=== PATIENT | male | born 1955 | race Caucasian/White ===

== ENCOUNTER 2024-12-16 16:59 | Inpatient (IN) ==
[2024-12-16 17:43] LABS: Hematocrit (blood only) 46.3 % (42.0-52.0); Hemoglobin 15.8 g/dl (14.0-18.0); Immature Granulocytes # (auto) 0.06 K/uL (0.01-0.20); Immature Granulocytes % (auto) 0.4 %; Mean Corpuscular Hemoglobin 28.8 pg (25.0-34.0); Mean Corpuscular Volume 84.3 fL (80.0-100.0); Platelet Count 279 K/uL (130-400); RDW Standard Deviation 37.8 fL (36.4-46.3); Red Blood Count 5.49 M/uL (4.70-6.10); White Blood Count 14.14 K/ul (4.8-10.8)
--- NOTE | 2024-12-16 17:55 | Emergency Department Note ---
Impression & Plan Pacemaker generator end of life, History of tetralogy of Fallot, Chronic indwelling Branch catheter, Hypomagnesemia ED Provider Note ED Provider Note NAME: STEF FLORES AGE:69 SEX: Male : 1955 ARRIVES VIA: private vehicle INFORMANT: Patient ED PROVIDER(s): Rosa Escalante DO CHIEF COMPLAINT: referred by cardiology HPI: This is a 69-year-old male who presents to the emergency department after being referred here by cardiology due to a concerning interrogation of his pacemaker as an outpatient as part of preop clearance for urologic procedure. Patient with a prior history of tetralogy of Fallot repair back in 1962. He has had a pacemaker since the age of 27 and states he is on his fourth one. He states he was required to have cardiology clearance before anesthesia would agree to the operative intervention for his ongoing urologic issues. He has a chronic indwelling Branch catheter and has had for 1 year. Patient denies any recent palpitations, chest pain, dizziness, headaches, vomiting, sweating, or leg swelling. PAST MEDICAL HISTORY:See Below PAST SURGICAL HISTORY:See Below FAMILY HISTORY:See Below SOCIAL HISTORY:See Below HOME MEDICATIONS:See Below ALLERGIES:See Below VITALS:See Below PHYSICAL EXAMINATION: GENERAL: alert, well appearing, well nourished, no distress, non-toxic EYE EXAM: normal conjunctiva, PERRL and EOM's grossly intact OROPHARYNX: no exudate, no erythema, lips, buccal mucosa, and tongue normal and mucous membranes are dry NECK: supple, no nuchal rigidity, no adenopathy, non-tender LUNGS: Clear to auscultation. Normal chest wall mechanics, no w/r/r HEART: no murmurs, S1 normal and S2 normal ABDOMEN: abdomen soft, non-tender, normo-active bowel sounds, no masses, no rebound or guarding. SKIN: no rashes, petechiae, orbruising UPPER EXTREMITIES: upper extremities are grossly normal. FROM, nml pulses b/l. LOWER EXTREMITIES: No pitting edema. FROM, nml pulses b/l. NEURO EXAM: Normal sensorium, cranial nerves II-XII grossly intact, normal speech, no facial droop,nogross weakness of arms, no gross weakness of legs. Gross sensation intact. No ataxia. Vital Signs: reviewed and remarkable Differential Diagnosis: Palpitations, dysrhythmia, pacemaker malfunction, ACS, pneumonia, dissection, pericarditis, myocarditis, pericardial effusion, medication ADR, as well as others were considered MEDICAL DECISION MAKING: This is a 69-year-old male referred to the emergency department by cardiology, Dr. Low, who I spoke with prior to his arrival. Concern by cardiology for end-of-life of his pacemaker and a chronically pacemaker patient. Patient denies any overt cardiac symptoms. He was afebrile and hemodynamically stable on arrival. He was aware of the findings by cardiology and his referral here for admission and generator change tomorrow. Labs drawn and sent, IV established, EKG and chest x-ray performed at bedside and interpreted by me and the patient was monitored on telemetry. He was noted to be mildly hypomagnesemic, IV magnesium repletion was started. Patient started on gentle IV fluid hydration. Case discussed with the hospitalist team for additional evaluation and management. They did speak with cardiology also. Consultation(s): 1839: Discussed with Dr. Cline, [facility] hospitalist team, for additional evaluation and mgmt. ER Treatment Provided: See below Diagnostics Interpreted By Me: -ECG: Paced at 65, rightward axis, prolonged intervals, no acute ST/T wave changes -Cardiac Monitoring: An order was placed for continuous cardiac monitoring. The monitor shows a rate of 66 with paced rhythm. -Laboratory studies: As stated above and show below. -Imaging studies: X-ray Chest: A single view study of the chest was reviewed and was negative for focal infiltrate, effusion, pulmonary edema, or wide mediastinum. Abnormal cardiac silhouette. Pacemaker noted. Triage Nursing Note Reviewed Prior/Outside Records Reviewed Past Med/Surg History Problem List (Updated 12/17/24 @ 00:11 by Rosa Escalante DO) Hypomagnesemia (Acute) Chronic indwelling Branch catheter (Acute) History of tetralogy of Fallot (Acute) Pacemaker generator end of life (Acute) Social History Smoking Status: Never smoker Tobacco Type: Smokeless Tobacco (Dip or Chew) Second Hand Exposure: No; Do You Dip or Chew Tobacco: No; Hx Alcohol Use: No Hx Substance Use: No Preferred Language: Greenlandic Communication Ability: Effective Tromper Required: No Beliefs That Will Affect Care: None Current Living Situation: Alone Feels Safe at Home: Yes Assistive Devices: None Allergies Allergies Allergy/AdvReac Type Severity Reaction Status Date / Time aspirin Allergy Unknown Verified 12/16/24 18:27 Home Meds Home Medications Medication Instructions Recorded Confirmed allopurinol 100 mg tablet 50 mg PO QAM 12/16/24 12/16/24 famotidine 20 mg tablet 20 mg PO QAM 12/16/24 12/16/24 finasteride 5 mg tablet 5 mg PO QAM 12/16/24 12/16/24 furosemide 40 mg tablet 40 mg PO BID 12/16/24 12/16/24 magnesium oxide 400 mg (241.3 mg 400 mg PO QAM 12/16/24 12/16/24 magnesium) tablet metformin 1,000 mg tablet 1,000 mg PO BIDWMEAL 12/16/24 12/16/24 polyethylene glycol 3350 17 17 g PO QAM 12/16/24 12/16/24 gram/dose oral powder (ClearLax) pravastatin 40 mg tablet 0 mg PO HS 12/16/24 12/16/24 sotalol 80 mg tablet 80 mg PO BID 12/16/24 12/16/24 spironolactone 25 mg tablet 25 mg PO QAM 12/16/24 12/16/24 tamsulosin 0.4 mg capsule 0.4 mg PO QAM 12/16/24 12/16/24 vitamin B complex 1 tab PO QAM 12/16/24 12/16/24 Results & Data (ED) Vital Signs Vital Signs - 24 hr 12/16/24 17:00 12/16/24 17:30 12/16/24 18:15 Temperature 36.6 C Temperature Source Temporal Artery Scan Pulse Rate 65 65 Pulse Rate [Apical] 65 Pulse Rate from SpO2 Sensor 65 Pulse Rhythm [Apical] Respiratory Rate 18 18 22 Respiratory Effort / Characteristics Non-Labored Spontaneous Respiratory Depth Normal Respiratory Pattern Regular Blood Pressure 115/69 Blood Pressure [Right Arm] 97/65 L Blood Pressure Mean 84 Blood Pressure Mean [Right Arm] 75 Pulse Oximetry 95 94 94 Oxygen Delivery Method Room Air Sepsis Recent Fever Within 48 Hours No Sepsis New/Unexplained Change in Mental Status N/A Sepsis Action Taken by Nursing No Action Required 12/16/24 18:15 12/16/24 18:15 12/16/24 18:15 Temperature Temperature Source Pulse Rate Pulse Rate [Apical] Pulse Rate from SpO2 Sensor Pulse Rhythm [Apical] Respiratory Rate Respiratory Effort / Characteristics Respiratory Depth Respiratory Pattern Blood Pressure 114/70 114/70 114/70 Blood Pressure [Right Arm] Blood Pressure Mean 85 85 85 Blood Pressure Mean [Right Arm] Pulse Oximetry Oxygen Delivery Method Sepsis Recent Fever Within 48 Hours Sepsis New/Unexplained Change in Mental Status Sepsis Action Taken by Nursing 12/16/24 18:20 12/16/24 18:27 12/16/24 18:29 Temperature Temperature Source Pulse Rate 65 66 Pulse Rate [Apical] 65 Pulse Rate from SpO2 Sensor 64 Pulse Rhythm [Apical] Regular Respiratory Rate 23 18 Respiratory Effort / Characteristics Non-Labored Spontaneous Respiratory Depth Normal Respiratory Pattern Regular Blood Pressure Blood Pressure [Right Arm] 114/70 Blood Pressure Mean Blood Pressure Mean [Right Arm] 84 Pulse Oximetry 95 94 Oxygen Delivery Method Room Air Room Air Sepsis Recent Fever Within 48 Hours Sepsis New/Unexplained Change in Mental Status Sepsis Action Taken by Nursing 12/16/24 18:31 Temperature Temperature Source Pulse Rate Pulse Rate [Apical] Pulse Rate from SpO2 Sensor Pulse Rhythm [Apical] Respiratory Rate Respiratory Effort / Characteristics Respiratory Depth Respiratory Pattern Blood Pressure 114/64 Blood Pressure [Right Arm] Blood Pressure Mean 97 Blood Pressure Mean [Right Arm] Pulse Oximetry Oxygen Delivery Method Sepsis Recent Fever Within 48 Hours Sepsis New/Unexplained Change in Mental Status Sepsis Action Taken by Nursing Laboratory Data 12/16/24 17:23 12/16/24 17:23 Lab Results 12/16/24 Range/Units 17:23 WBC 14.14 H (4.8-10.8) K/ul RBC 5.49 (4.70-6.10) M/uL Hgb 15.8 (14.0-18.0) g/dl Hct 46.3 (42.0-52.0) % MCV 84.3 (80.0-100.0) fL MCH 28.8 (25.0-34.0) pg MCHC 34.1 (32.0-36.0) g/dL RDW Std Deviation 37.8 (36.4-46.3) fL RDW Coeff of Ar 12.5 (11.5-14.5) % Plt Count 279 (130-400) K/uL MPV 10.7 (9.4-12.4) fL Immature Gran % (Auto) 0.4 % Neut % (Auto) 69.6 % Lymph % (Auto) 19.7 % Churchill % (Auto) 9.8 % Eos % (Auto) 0.0 % Baso % (Auto) 0.5 % Neut # (Auto) 9.84 H (1.40-6.50) K/uL Lymph # (Auto) 2.79 (1.20-3.40) K/uL Churchill # (Auto) 1.38 H (0.11-0.59) K/uL Eos # (Auto) 0.00 (0.00-0.50) K/uL Baso # (Auto) 0.07 (0.00-0.20) K/uL Immature Gran # (Auto) 0.06 (0.01-0.20) K/uL PT 11.2 (9.0-12.0) Seconds INR 1.0 (0.9-1.1) Sodium 137 (136-145) mmol/L Potassium 3.9 (3.5-5.1) mmol/L Chloride 96 L (98-107) mmol/L Carbon Dioxide 29 (21-32) mmol/L Anion Gap 12 H (3-11) BUN 42 H (6-23) mg/dl Creatinine 1.12 (0.6-1.4) mg/dl Est Cr Clr Drug Dosing 62.9 ml/min eGFR 71.56 BUN/Creatinine Ratio 37.5 H (10-20) Glucose 138 H (70-99(Fasting)) mg/dl Calcium 10.1 (8.6-10.3) mg/dl Magnesium 1.5 L (1.7-2.4) mg/dl Total Bilirubin 0.5 (0.2-1.0) mg/dl AST 13 (13-39) U/L ALT 10 (7-52) U/L Alkaline Phosphatase 66 (34-104) U/L Total Protein 8.0 (6.0-8.3) gm/dl Albumin 4.4 (3.4-5.0) gm/dl Globulin 3.6 (2.5-4.0) gm/dl Albumin/Globulin Ratio 1.2 (0.9-2) Procalcitonin < 0.02 (0-0.5) ng/ml Administered Medications Furosemide (Furosemide 40 Mg Tab) 40 mg PO BID SEAMUS Stop: 01/15/25 20:59 Last Admin: 12/16/24 21:08 Dose: 40 mg Documented By: JANIYA Insulin Aspart (Insulin Aspart Per Unit Charge) 0 units SC Q6 SEAMUS Stop: 01/15/25 20:59 Last Admin: 12/16/24 23:17 Dose: Not Given Documented By: JANIYA Co-signed By: CHAYITO Admin: 12/16/24 21:09 Dose: Not Given Documented By: DM Co-signed By: SYLVESTER Sotalol HCl (Sotalol Hcl 80 Mg Tab) 80 mg PO BID SEAMUS Stop: 01/15/25 20:59 Last Admin: 12/16/24 21:08 Dose: 80 mg Documented By: DM Discontinued Medications Sodium Chloride (Nss) 1,000 mls @ 125 mls/hr IV .Q8H SEAMUS Stop: 12/19/24 17:59 Last Infusion: 12/16/24 19:20 Dose: Infused Documented By: Infusion: 12/16/24 19:19 Dose: 0 mls/hr Documented By: Admin: 12/16/24 18:20 Dose: 125 mls/hr Documented By: FREYA Magnesium Sulfate/Dextrose (Magnesium Sulfate / D5w) 1 gm in 100 mls @ 100 mls/hr IV NOW STA Stop: 12/16/24 19:05 Last Infusion: 12/16/24 19:32 Dose: Infused Documented By: Admin: 12/16/24 18:20 Dose: 100 mls/hr Documented By: FREYA Magnesium Sulfate/Dextrose (Magnesium Sulfate / D5w) 1 gm in 100 mls @ 50 mls/hr IV Q2H SEAMUS Stop: 12/16/24 22:44 Last Infusion: 12/16/24 23:29 Dose: Infused Documented By: Admin: 12/16/24 21:29 Dose: 50 mls/hr Documented By: Infusion: 12/16/24 21:29 Dose: Infused Documented By: Admin: 12/16/24 19:31 Dose: 50 mls/hr Documented By: MAC Imaging Data Radiologist's Impression: Chest X-Ray 12/16/24 17:02 Clinical History: Chest pain Technique: A frontal view of the chest was obtained Findings: There are no confluent pulmonary infiltrates. The heart size is at the upper limit of normal. No pleural effusion or pneumothorax is seen. There is enlargement of the bilateral memo No fracture is noted. There is a right chest wall pacemaker device Impression: Bilateral hilar prominence that could be due to enlarged central vasculature such as from pulmonary arterial hypertension, adenopathy, or mass. Contrast-enhanced chest CT could be considered for further evaluation ACT 112: Positive. There are findings on this exam that require communication between the performing entity and the patient following Patient Test Result Information Act ([place] ACT 112) guidelines. Electronically signed by Home Garcia 12-16-2024 6:14 PM Discharge Plan Visit Data Chief Complaint: Referred by Doctor Stated Complaint: REF BY DR FOR PACEMAKER ED Provider: Rosa Escalante Discharge Problem: Pacemaker generator end of life, History of tetralogy of Fallot, Chronic indwelling Branch catheter, Hypomagnesemia Patient Disposition: Admitted As Inpatient Condition: Fair Discharge Instructions Interventions: ED Discharge Assessment Last Done: 12/16/24 20:13
[2024-12-16 18:04] LABS: Alanine Aminotransferase 10.0 U/L (7-52); Albumin Globulin Ratio 1.2 (0.9-2); Alkaline Phosphatase 66.0 U/L (34-104); Anion Gap 12.0 (3-11); Bilirubin,Total 0.5 mg/dl (0.2-1.0); Blood Urea Nitrogen 42.0 mg/dl (6-23); Calcium 10.1 mg/dl (8.6-10.3); Carbon Dioxide 29.0 mmol/L (21-32); Chloride 96.0 mmol/L (98-107); Creatinine Clr Calc Pharmacy 62.9 ml/min; Globulin 3.6 gm/dl (2.5-4.0); Glucose 138.0 mg/dl (70-99(Fasting)); Magnesium 1.5 mg/dl (1.7-2.4); Potassium 3.9 mmol/L (3.5-5.1); Sodium 137.0 mmol/L (136-145); Total Protein 8.0 gm/dl (6.0-8.3)
[2024-12-16 18:13] LABS: INR 1.0 (0.9-1.1); Prothrombin Time 11.2 Seconds (9.0-12.0)
--- NOTE | 2024-12-16 18:15 | XRay Report ---
Clinical History: Chest pain Technique: A frontal view of the chest was obtained Findings: There are no confluent pulmonary infiltrates. The heart size is at the upper limit of normal. No pleural effusion or pneumothorax is seen. There is enlargement of the bilateral memo No fracture is noted. There is a right chest wall pacemaker device Impression: Bilateral hilar prominence that could be due to enlarged central vasculature such as from pulmonary arterial hypertension, adenopathy, or mass. Contrast-enhanced chest CT could be considered for further evaluation ACT 112: Positive. There are findings on this exam that require communication between the performing entity and the patient following Patient Test Result Information Act ([place] ACT 112) guidelines. Electronically signed by Home Garcia 12-16-2024 6:14 PM
[2024-12-16] MEDS: SODIUM CHLORIDE 0.9% 1,000 ML IV SCH (18:20)
[2024-12-16] MEDS: MAGNESIUM SULFATE / D5W 1 GM/100 ML BAG IV STA (18:20)
--- NOTE | 2024-12-16 19:09 | History & Physical Report ---
Date of Service December 16, 2024 Assessment & Plan (1) Pacemaker generator end of life: Plan Pacemaker RAJINDER 07/14/2024 Pacemaker battery end of life Patient currently on his third place maker, implanted 09/15/2015, SURGERY CENTER ADMINISTRATOR was on 07/14/2024, cardiology office was notified by [employer] team and hence they recommended patient to reach out to the ED. Patient does not have any cardiac complaints. Case was discussed with cardiology, patient will be admitted in PCU, n.p.o. midnight, continue with sotalol. pacemaker replacement likely juvencio BPH, urinary retention: On Branch catheter, continue. Other chronic medical conditions: T2DM, HLD, gout, GERD, HTN, Tetralogy of Fallot, paroxysmal atrial tachycardia, complete AV block, congenital heart disease: Continue with/resume home meds as and when able. DVT prophylaxis: SCDs, possible operative procedure tomorrow. DNR/DNI History of Present Illness Chief Complaint: Dual-chamber pacemaker past SURGERY CENTER ADMINISTRATOR date Primary Care Provider: Blu Lainez MD 69-year-old male with PMH of congenital heart disease, tetralogy of Fallot [underwent surgical repair at the age of 7 in 1963 at [facility]], had pacemaker since age 26 and is currently on his third pacemaker [replaced 2015] [primarily pacing right ventricle due to complete heart block], severe pulmonic regurgitation, right heart enlargement, atrial flutter on sotalol, benign prostatic hypertrophy, urinary retention status Branch catheter [changed 4 weekly, can't tell when last changed but states within 4 weeks] was sent to the ED by his outpatient cardiology office due to patient's current pacemaker device was RAJINDER from 07/14/2024. Patient denies fever/chills/cough/chest pain/palpitation/nausea/vomiting/diarrhea/pain or burning with passing urine/acute changes in his appetite/belly pain. Patient has chronic Branch catheter, light yellow urine collection noted in bag. Patient denies smoking/alcohol/recreational drugs. Medications reviewed with the patient at bedside. DNR/DNI Allergies Allergy/AdvReac Type Severity Reaction Status Date / Time aspirin Allergy Unknown Verified 12/16/24 18:27 Home Medications Medication Instructions Recorded Confirmed Type allopurinol 100 mg tablet 50 mg PO QAM 12/16/24 12/16/24 History famotidine 20 mg tablet 20 mg PO QAM 12/16/24 12/16/24 History finasteride 5 mg tablet 5 mg PO QAM 12/16/24 12/16/24 History furosemide 40 mg tablet 40 mg PO BID 12/16/24 12/16/24 History magnesium oxide 400 mg (241.3 mg 400 mg PO QAM 12/16/24 12/16/24 History magnesium) tablet metformin 1,000 mg tablet 1,000 mg PO BIDWMEAL 12/16/24 12/16/24 History polyethylene glycol 3350 17 17 g PO QAM 12/16/24 12/16/24 History gram/dose oral powder (ClearLax) pravastatin 40 mg tablet 0 mg PO HS 12/16/24 12/16/24 History sotalol 80 mg tablet 80 mg PO BID 12/16/24 12/16/24 History spironolactone 25 mg tablet 25 mg PO QAM 12/16/24 12/16/24 History tamsulosin 0.4 mg capsule 0.4 mg PO QAM 12/16/24 12/16/24 History vitamin B complex 1 tab PO QAM 12/16/24 12/16/24 History Past Med/Surg History Problem List (Updated 12/16/24 @ 17:55 by Rosa Escalante DO) Chronic indwelling Branch catheter (Acute) History of tetralogy of Fallot (Acute) Pacemaker generator end of life (Acute) Social History Smoking Status: Current every day smoker Tobacco Type: Smokeless Tobacco (Dip or Chew) Preferred Language: Macedonian Feels Safe at Home: Yes Review of Systems Review of Systems: Review of symptoms negative otherwise mentioned in HPI. Physical Exam Physical Exam: GENERAL: Alert and oriented x3. NAD, on RA. HEENT: No pallor, no icterus. Pupils equal, round and reactive to light. Oral mucosa moist. NECK: No JVD, no neck masses. HEART: S1 and S2 heard. Regular rate and rhythm. + murmur, no gallop. Right pectoral device pocket healthy without erythema/swelling/tenderness/drainage. RESPIRATORY SYSTEM: Normal AP diameter. No accessory muscle use. No wheezing, no crackles. ABDOMEN: Soft, bowel sounds present, nontender, no distention. CENTRAL NERVOUS SYSTEM: No facial droop. Speech is clear. Obeys simple commands. Moves extremities. EXTREMITIES: No edema, no erythema seen. Results & Data Results & Data Vital Signs (Past 12 Hours) Vital Signs Temp Pulse Pulse Resp BP BP Pulse Ox 12/16/24 18:29 66 12/16/24 18:20 65 23 114/70 95 12/16/24 17:30 65 18 97/65 L 94 12/16/24 17:00 36.6 C 65 18 115/69 95 O2 Del Method 12/16/24 18:29 12/16/24 18:20 Room Air 12/16/24 17:30 Room Air 12/16/24 17:00 Code Status & VTE Plan VTE Prophylaxis Plan VTE Prophylaxis will be ordered: Yes
[2024-12-16] MEDS ORDERED: GLUCAGON FOR INJ 1 MG VIAL SQ PRN (19:10)
[2024-12-16] MEDS ORDERED: GLUCOSE 40% GEL 15 GM TUBE PO PRN (19:10)
[2024-12-16] MEDS ORDERED: GLUCOSE 10 TAB/TUBE PO PRN (19:10)
[2024-12-16] MEDS ORDERED: CARBOHYDRATES FOR HYPOGLYCEMIA PO PRN (19:10)
[2024-12-16] MEDS ORDERED: DEXTROSE 50% 50 ML SYRINGE IV PRN (19:10)
--- NOTE | 2024-12-16 19:15 | Cardiology Consultation ---
Date of Consultation December 16, 2024 Assessment & Plan (1) Pacemaker generator end of life: As noted, patient's dual-chamber pacemaker reached the elective replacement interval in July,. The battery voltage is very low and he is pacemaker dependent necessitating hospitalization for generator change. Review of operative report dated 09[place]15/[place] [facility] [place] the following: IMPLANTED HARDWARE: 1. Pulse generator: [employer] model AZDR06, serial number [id number]. 2. Right atrial lead: Cordis model [id number]. 3. Right ventricular lead: Cordis model 329-158, serial #[id number]. Efforts underway to obtain a pacemaker generator that would be compatible with his indwelling chronic leads. It has been requested via overnight shipping and will hopefully be here by tomorrow. Patient's home medications including sotalol will be continued. Agree with plans to replace magnesium intravenously in the emergency room. Patient may eat now, n.p.o. after midnight for planned procedure tomorrow 12/17/2024. (2) History of tetralogy of Fallot: Surgical repair in 1962 with severe residual pulmonic regurgitation and right ventricular chamber enlargement noted on echocardiogram in 2023. Despite echo findings, patient describes stable activity tolerance without perceived limitation. When he had been seen by pediatric/adult congenital cardiology in outpatient follow-up in 2023, percutaneous versus surgical pulmonic valve replacement discussed at that time. Patient has had other issues however that of come up in the meantime. Outpatient follow-up will be arranged. (3) Chronic indwelling Branch catheter: TURP on hold pending generator change, with recommendations as noted last week to have planned urology procedure performed at a tertiary center due to his complex cardiac history. Case discussed with Dr Escalante of Emergency medicine, Dr. Cline of the Hospitalist service , and Dr Ascencio of EP for the purpose of coordination of care I spent a total of 85 minutes on the date of service in preparation, delivery, and documentation of the care provided to this patient, excluding any time spent in the performance of separately billed services. Stan Low DO History of Present Illness History of Present Illness Jerome Spencer is a 69 year old male seen in cardiology consultation per the request of Dr Escalante and Dr Cline for evaluation of pacemaker battery depletion. The patient was seen in the outpatient cardiology clinic by the undersigned last week on 12/12/2024 for preoperative evaluation prior to proposed transurethral prostate resection. Routine inpatient pacemaker check was scheduled for today at the [facility] and he confirmed that the device had reached the elective replacement interval on. EKG reveals the patient is asynchronously pacing in the 60s with underlying sinus mechanism. Patient directed to the emergency department per the advice of electrophysiology given concerns of imminent battery depletion in a patient that is pacemaker dependent. Upon arrival the patient feels well. He denies any chest discomfort or shortness of breath. He describes stable activity tolerance with activities such as grocery shopping which he performed today. He continues to have an indwelling Branch catheter which is changed monthly due to urinary retention. History: 1.History of congenital heart disease, tetralogy of Fallot for which she underwent surgical repair at the age of 7 in 1962 at [facility] 2.Underlying complete heart block with initial pacemaker having been implanted at the age of 26 and he states he is currently on his third pacemaker, most recent generator change performed to [facility] in 2015 3.Severe pulmonic regurgitation, right ventricular chamber enlargement, echocardiogram performed Aug, 2023. 4.History of paroxysmal atrial tachycardia for which she is on chronic sotalol therapy for rhythm control 5. He has been experiencing issues related to benign prostatic hypertrophy and urinary retention, necessitating the use of a catheter for over a year, aince 2023 Allergies Allergy/AdvReac Type Severity Reaction Status Date / Time aspirin Allergy Unknown Verified 12/16/24 18:27 Home Medications Medication Instructions Recorded Confirmed Type allopurinol 100 mg tablet 50 mg PO QAM 12/16/24 12/16/24 History famotidine 20 mg tablet 20 mg PO QAM 12/16/24 12/16/24 History finasteride 5 mg tablet 5 mg PO QAM 12/16/24 12/16/24 History furosemide 40 mg tablet 40 mg PO BID 12/16/24 12/16/24 History magnesium oxide 400 mg (241.3 mg 400 mg PO QAM 12/16/24 12/16/24 History magnesium) tablet metformin 1,000 mg tablet 1,000 mg PO BIDWMEAL 12/16/24 12/16/24 History polyethylene glycol 3350 17 17 g PO QAM 12/16/24 12/16/24 History gram/dose oral powder (ClearLax) pravastatin 40 mg tablet 0 mg PO HS 12/16/24 12/16/24 History sotalol 80 mg tablet 80 mg PO BID 12/16/24 12/16/24 History spironolactone 25 mg tablet 25 mg PO QAM 12/16/24 12/16/24 History tamsulosin 0.4 mg capsule 0.4 mg PO QAM 12/16/24 12/16/24 History vitamin B complex 1 tab PO QAM 12/16/24 12/16/24 History Patient History Social History Smoking Status: Current every day smoker Tobacco Type: Smokeless Tobacco (Dip or Chew) Preferred Language: Malian Feels Safe at Home: Yes Review of Systems Review of Systems: All systems reviewed & are unremarkable except as noted in HPI & below Physical Exam Physical Exam: Temp Pulse Resp BP Pulse Ox O2 Del Method 36.6 C 65 18 133/74 94 Room Air 12/16/24 17:00 12/16/24 19:00 12/16/24 19:00 12/16/24 19:00 12/16/24 19:00 12/16/24 19:00 General: no acute distress and stated age Eyes: conjunctiva are pink and non-injected, sclera clear Neck: normal jugular venous pulse, no hepatojugular reflux Chest: normal shape and normal respiratory effort -Well-healed midline sternotomy incision -Right infraclavicular device pocket terese an dry and intact Lungs: clear to auscultation and percussion Cardiac Exam: - regular heart sounds,1/6 diastolic murmur Abdomen: abdomen soft, non-tender, no abnormal masses and no hepatosplenomegaly Musculoskeletal: no gait disturbance, no weakness Extremities: no edema and no cyanosis Neuro: grossly normal exam Psych: appropriate affect and insight. Results & Data Vital Signs (Past 12 Hours) Vital Signs Temp Pulse Pulse Resp BP BP Pulse Ox 12/16/24 18:29 66 12/16/24 18:20 65 23 114/70 95 12/16/24 17:30 65 18 97/65 L 94 12/16/24 17:00 36.6 C 65 18 115/69 95 O2 Del Method 12/16/24 18:29 12/16/24 18:20 Room Air 12/16/24 17:30 Room Air 12/16/24 17:00 Laboratory Results Cardiac Enzymes 12/16/24 Range/Units 17:23 AST 13 (13-39) U/L Coagulation 12/16/24 Range/Units 17:23 PT 11.2 (9.0-12.0) Seconds CBC 12/16/24 Range/Units 17:23 WBC 14.14 H (4.8-10.8) K/ul RBC 5.49 (4.70-6.10) M/uL Hgb 15.8 (14.0-18.0) g/dl Hct 46.3 (42.0-52.0) % Plt Count 279 (130-400) K/uL Neut # (Auto) 9.84 H (1.40-6.50) K/uL Lymph # (Auto) 2.79 (1.20-3.40) K/uL [place] # (Auto) 1.38 H (0.11-0.59) K/uL Eos # (Auto) 0.00 (0.00-0.50) K/uL Baso # (Auto) 0.07 (0.00-0.20) K/uL Comprehensive Metabolic Panel 12/16/24 Range/Units 17:23 Sodium 137 (136-145) mmol/L Potassium 3.9 (3.5-5.1) mmol/L Chloride 96 L (98-107) mmol/L Carbon Dioxide 29 (21-32) mmol/L BUN 42 H (6-23) mg/dl Creatinine 1.12 (0.6-1.4) mg/dl Glucose 138 H (70-99(Fasting)) mg/dl Calcium 10.1 (8.6-10.3) mg/dl AST 13 (13-39) U/L ALT 10 (7-52) U/L Alkaline Phosphatase 66 (34-104) U/L Total Protein 8.0 (6.0-8.3) gm/dl Albumin 4.4 (3.4-5.0) gm/dl Intake and Output 12/16/24 12/16/24 12/16/24 06:59 14:59 22:59 Other: Weight 80.4 kg Weight Measurement Method Chair Scale Patient Weight 12/17/24 06:59 Weight 80.4 kg Diagnostic Findings Summary of Ped/ congenital echo 08/31/23: There is moderate right atrial dilatation. There is mild left atrial dilatation. LV function is mildly depressed and septal motion is paradoxic The left ventricular diastolic function is abnormal . There is moderate right ventricular dilatation. The right ventricular function is severely depressed . A pacing wire is seen in the right ventricle. A VSD patch is present and intact. 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 There is mild pulmonary valve stenosis There is mild aortic insufficiency . The branch pulmonary arteries are normal. EKG performed 12/16/2024 and interpreted independently sinus rhythm with underlying complete heart block and asynchronous ventricular pacing at 65 bpm Summary Radiology report of chest x-ray performed 12/16/2024: Bilateral hilar prominence that could be due to enlarged central vasculature such as from pulmonary arterial hypertension, adenopathy, or mass. Contrast-enhanced chest CT could be considered for further evaluation --Per my personal interpretation, enlargement of the cardiac silhouette is noted with noted dual-chamber pacemaker leads. Mediastinal prominence likely consistent with the patient's underlying cardiac/congenital heart disease history Coding Level of Care Code 56601 IN/OBS CONSULT LVL 5,80M Diagnoses Pacemaker generator end of life Z45.010 History of tetralogy of Fallot Z87.74 Chronic indwelling Branch catheter Z97.8
[2024-12-16] MEDS: MAGNESIUM SULFATE / D5W 1 GM/100 ML BAG IV SCH (19:31)
[2024-12-16] MEDS ORDERED: MAGNESIUM HYDROXIDE SUSP 30 ML UDC PO PRN (20:13)
[2024-12-16] MEDS ORDERED: ACETAMINOPHEN 325 MG TAB PO PRN (20:13)
[2024-12-16] MEDS ORDERED: POLYETHYLENE (MIRALAX) 17 GM PACK PO PRN (20:13)
[2024-12-16] MEDS ORDERED: ALUMINUM/MAGNESIUM SUSP 30 ML UDC PO PRN (20:13)
[2024-12-16] MEDS: FUROSEMIDE 40 MG TAB PO SCH (21:08)
[2024-12-16] MEDS: SOTALOL HCL 80 MG TAB PO SCH (21:08)
[2024-12-16] MEDS: INSULIN ASPART PER UNIT CHARGE SC SCH (21:09)
[2024-12-17 06:07] LABS: Hematocrit (blood only) 41.6 % (42.0-52.0); Hemoglobin 14.2 g/dl (14.0-18.0); Mean Corpuscular Hemoglobin 29.0 pg (25.0-34.0); Mean Corpuscular Volume 85.1 fL (80.0-100.0); Platelet Count 231 K/uL (130-400); RDW Standard Deviation 38.8 fL (36.4-46.3); Red Blood Count 4.89 M/uL (4.70-6.10); White Blood Count 12.04 K/ul (4.8-10.8)
[2024-12-17 06:26] LABS: Anion Gap 8.0 (3-11); Blood Urea Nitrogen 35.0 mg/dl (6-23); Calcium 9.0 mg/dl (8.6-10.3); Carbon Dioxide 29.0 mmol/L (21-32); Chloride 99.0 mmol/L (98-107); Creatinine Clr Calc Pharmacy 70.4 ml/min; Glucose 124.0 mg/dl (70-99(Fasting)); Magnesium 2.1 mg/dl (1.7-2.4); Potassium 3.7 mmol/L (3.5-5.1); Sodium 136.0 mmol/L (136-145)
[2024-12-17 07:04] LABS: Hemoglobin A1C 5.9 % (4.5-5.6)
--- NOTE | 2024-12-17 08:38 | Hospitalist Progress Note ---
Date of Service December 17, 2024 Assessment & Plan (1) Pacemaker generator end of life: Plan Pacemaker RAJINDER 07/14/2024 Pacemaker battery end of life Patient currently on his third pacemaker, implanted 09/15/2015, [employer] was on 07/14/2024, cardiology office was notified by [employer] team and hence they recommended patient to reach out to the ED. Patient does not have any cardiac complaints. Case was discussed with cardiology on admission, patient was admitted to PCU - currently n.p.o. in anticipation of pacer gen change by Dr. Ascencio later today - continue with sotalol - cont. to closely monitor BPH, urinary retention: Branch catheter, continue. Plan for TURP in tertiary center in the future Other chronic medical conditions: T2DM, HLD, gout, GERD, HTN, Tetralogy of Fallot, paroxysmal atrial tachycardia, complete AV block, congenital heart disease: Continue with/resume home meds as and when able. DVT prophylaxis: SCDs, possible operative procedure today Full code Admission and Anticipated Discharge Date Admission Date: December 16, 2024 Subjective Pt seen in follow up Cardiology following closely - plan for pacer gen change by Dr. Ascencio Currently pt lying in bed in NAD Denies any chest pain, shortness of breath, dizziness, lightheadedness, abd. pain, n/v Review of Systems Review of Systems: All systems reviewed & are unremarkable except as noted in Subjective Physical Exam Physical Exam: GENERAL: Alert and oriented x3. NAD, on RA. HEENT: NC/AT. Oral mucosa moist. NECK: supple HEART: S1 and S2 heard. Regular rate and rhythm. + murmur, no gallop. Right pectoral device pocket healthy without erythema/swelling/tenderness/dr steven. RESPIRATORY: No accessory muscle use. No wheezing, no crackles. ABDOMEN: Soft, bowel sounds present, nontender, no distention. NEURO: awake, alert, answers appropriately, No facial droop. Speech is clear. Moves extremities. EXTREMITIES: No edema, no erythema seen. Results & Data Results & Data Vital Signs (Past 12 Hours) Vital Signs Temp Pulse Pulse Resp BP Pulse Ox O2 Del Method 12/17/24 08:15 36.7 C 64 18 90/60 L 97 Room Air 12/17/24 04:15 36.4 C L 65 17 99/66 L 94 Room Air 12/16/24 23:57 36.6 C 65 16 105/66 96 Room Air 12/16/24 21:58 65 12/16/24 21:08 65 12/16/24 20:54 36.6 C 63 18 137/87 96 Room Air Laboratory Results 12/17/24 12/17/24 12/16/24 Range/Units 05:36 05:33 20:56 WBC 12.04 H (4.8-10.8) K/ul RBC 4.89 (4.70-6.10) M/uL Hgb 14.2 (14.0-18.0) g/dl Hct 41.6 L (42.0-52.0) % MCV 85.1 (80.0-100.0) fL MCH 29.0 (25.0-34.0) pg MCHC 34.1 (32.0-36.0) g/dL RDW Std Deviation 38.8 (36.4-46.3) fL RDW Coeff of Ar 12.7 (11.5-14.5) % Plt Count 231 (130-400) K/uL MPV 10.6 (9.4-12.4) fL Immature Gran % (Auto) % Neut % (Auto) % Lymph % (Auto) % [place] % (Auto) % Eos % (Auto) % Baso % (Auto) % Neut # (Auto) (1.40-6.50) K/uL Lymph # (Auto) (1.20-3.40) K/uL [place] # (Auto) (0.11-0.59) K/uL Eos # (Auto) (0.00-0.50) K/uL Baso # (Auto) (0.00-0.20) K/uL Immature Gran # (Auto) (0.01-0.20) K/uL PT (9.0-12.0) Seconds INR (0.9-1.1) Sodium 136 (136-145) mmol/L Potassium 3.7 (3.5-5.1) mmol/L Chloride 99 (98-107) mmol/L Carbon Dioxide 29 (21-32) mmol/L Anion Gap 8 (3-11) BUN 35 H (6-23) mg/dl Creatinine 1.00 (0.6-1.4) mg/dl Est Cr Clr Drug Dosing 70.4 ml/min eGFR 81.98 BUN/Creatinine Ratio 35.0 H (10-20) Glucose 124 H (70-99(Fasting)) mg/dl POC Glucose 125 H 184 H (70-99) mg/dl Estimat Average Glucose 123 mg/dl Hemoglobin A1c 5.9 H (4.5-5.6) % Calcium 9.0 (8.6-10.3) mg/dl Magnesium 2.1 (1.7-2.4) mg/dl Total Bilirubin (0.2-1.0) mg/dl AST (13-39) U/L ALT (7-52) U/L Alkaline Phosphatase (34-104) U/L Total Protein (6.0-8.3) gm/dl Albumin (3.4-5.0) gm/dl Globulin (2.5-4.0) gm/dl Albumin/Globulin Ratio (0.9-2) Procalcitonin (0-0.5) ng/ml 12/16/24 12/16/24 Range/Units 20:11 17:23 WBC 14.14 H (4.8-10.8) K/ul RBC 5.49 (4.70-6.10) M/uL Hgb 15.8 (14.0-18.0) g/dl Hct 46.3 (42.0-52.0) % MCV 84.3 (80.0-100.0) fL MCH 28.8 (25.0-34.0) pg MCHC 34.1 (32.0-36.0) g/dL RDW Std Deviation 37.8 (36.4-46.3) fL RDW Coeff of Ar 12.5 (11.5-14.5) % Plt Count 279 (130-400) K/uL MPV 10.7 (9.4-12.4) fL Immature Gran % (Auto) 0.4 % Neut % (Auto) 69.6 % Lymph % (Auto) 19.7 % Turner % (Auto) 9.8 % Eos % (Auto) 0.0 % Baso % (Auto) 0.5 % Neut # (Auto) 9.84 H (1.40-6.50) K/uL Lymph # (Auto) 2.79 (1.20-3.40) K/uL [place] # (Auto) 1.38 H (0.11-0.59) K/uL Eos # (Auto) 0.00 (0.00-0.50) K/uL Baso # (Auto) 0.07 (0.00-0.20) K/uL Immature Gran # (Auto) 0.06 (0.01-0.20) K/uL PT 11.2 (9.0-12.0) Seconds INR 1.0 (0.9-1.1) Sodium 137 (136-145) mmol/L Potassium 3.9 (3.5-5.1) mmol/L Chloride 96 L (98-107) mmol/L Carbon Dioxide 29 (21-32) mmol/L Anion Gap 12 H (3-11) BUN 42 H (6-23) mg/dl Creatinine 1.12 (0.6-1.4) mg/dl Est Cr Clr Drug Dosing 62.9 ml/min eGFR 71.56 BUN/Creatinine Ratio 37.5 H (10-20) Glucose 138 H (70-99(Fasting)) mg/dl POC Glucose 174 H (70-99) mg/dl Estimat Average Glucose mg/dl Hemoglobin A1c (4.5-5.6) % Calcium 10.1 (8.6-10.3) mg/dl Magnesium 1.5 L (1.7-2.4) mg/dl Total Bilirubin 0.5 (0.2-1.0) mg/dl AST 13 (13-39) U/L ALT 10 (7-52) U/L Alkaline Phosphatase 66 (34-104) U/L Total Protein 8.0 (6.0-8.3) gm/dl Albumin 4.4 (3.4-5.0) gm/dl Globulin 3.6 (2.5-4.0) gm/dl Albumin/Globulin Ratio 1.2 (0.9-2) Procalcitonin < 0.02 (0-0.5) ng/ml Medications Administered Current Inpatient Medications Acetaminophen (Acetaminophen 325 Mg Tab) 650 mg PO Q4H PRN PRN Reason: Pain or Fever Stop: 01/15/25 20:12 Al Hydrox/Mg Hydrox/Simethicone (Aluminum/Magnesium Susp 30 Ml Udc) 15 ml PO Q4H PRN PRN Reason: Dyspepsia Stop: 01/15/25 20:12 Allopurinol (Allopurinol 100 Mg Tab) 50 mg PO QAM [facility] Stop: 01/16/25 08:59 Dextrose (Dextrose 50% 50 Ml Syringe) 25 - 50 ml IV UD PRN; Protocol PRN Reason: Hypoglycemia Protocol Stop: 01/15/25 19:09 Famotidine (Famotidine 20 Mg Tab) 20 mg PO QAM [facility] Stop: 01/16/25 08:59 Finasteride (Finasteride 5 Mg Tab) 5 mg PO QAM [facility] Stop: 01/16/25 08:59 Furosemide (Furosemide 40 Mg Tab) 40 mg PO BID [facility] Stop: 01/15/25 20:59 Last Admin: 12/16/24 21:08 Dose: 40 mg Glucagon (Glucagon For Inj 1 Mg Vial) 1 mg SQ UD PRN; Protocol PRN Reason: Hypoglycemia Protocol Stop: 01/15/25 19:09 Glucose (Glucose 40% Gel 15 Gm Tube) 15 - 30 gm PO UD PRN; Protocol PRN Reason: Hypoglycemia Protocol Stop: 01/15/25 19:09 Glucose (Glucose 10 Tab/Tube) 4 - 8 tab PO UD PRN; Protocol PRN Reason: Hypoglycemia Protocol Stop: 01/15/25 19:09 Insulin Aspart (Insulin Aspart Per Unit Charge) 0 units SC Q6 [facility] Stop: 01/15/25 20:59 Last Admin: 12/17/24 05:35 Dose: Not Given Magnesium Hydroxide (Magnesium Hydroxide Susp 30 Ml Udc) 30 ml PO Q12H PRN PRN Reason: Constipation Stop: 01/15/25 20:12 Magnesium Oxide (Magnesium Oxide 400 Mg Tab) 400 mg PO QAM [facility] Stop: 01/16/25 08:59 Miscellaneous (Carbohydrates For Hypoglycemia ) 15 - 30 gm PO UD PRN PRN Reason: Hypoglycemia Protocol Stop: 01/15/25 19:09 Polyethylene Glycol (Polyethylene (Miralax) 17 Gm Pack) 17 gm PO DAILY PRN PRN Reason: Constipation Stop: 01/15/25 20:12 Polyethylene Glycol (Polyethylene (Miralax) 17 Gm Pack) 17 gm PO QAM [facility] Stop: 01/16/25 08:59 Pravastatin Sodium (Pravastatin Sod 40 Mg Tab) 40 mg PO QAM [facility] Stop: 01/16/25 08:59 Sotalol HCl (Sotalol Hcl 80 Mg Tab) 80 mg PO BID [facility] Stop: 01/15/25 20:59 Last Admin: 12/16/24 21:08 Dose: 80 mg Spironolactone (Spironolactone 25 Mg Tab) 25 mg PO QAM [facility] Stop: 01/16/25 08:59 Tamsulosin HCl (Tamsulosin Hcl 0.4 Mg Cap) 0.4 mg PO QAM [facility] Stop: 01/16/25 08:59
[2024-12-17] MEDS: PRAVASTATIN SOD 40 MG TAB PO SCH (09:13)
[2024-12-17] MEDS: MAGNESIUM OXIDE 400 MG TAB PO SCH (09:13)
[2024-12-17] MEDS: SPIRONOLACTONE 25 MG TAB PO SCH (09:13)
[2024-12-17] MEDS: TAMSULOSIN HCL 0.4 MG CAP PO SCH (09:13)
[2024-12-17] MEDS: FINASTERIDE 5 MG TAB PO SCH (09:13)
[2024-12-17] MEDS: POLYETHYLENE (MIRALAX) 17 GM PACK PO SCH (09:14)
[2024-12-17] MEDS: FAMOTIDINE 20 MG TAB PO SCH (09:14)
--- NOTE | 2024-12-17 10:29 | Cardiology Progress Note ---
Date of Service December 17, 2024 Assessment & Plan (1) Pacemaker generator end of life: Plan: As noted, patient's dual-chamber pacemaker reached the elective replacement interval in July,. The battery voltage is very low and he is pacemaker dependent necessitating hospitalization for generator change. Review of operative report dated 09/15/2015 from [facility] [place] describes the following: IMPLANTED HARDWARE: 1. Pulse generator: [employer] model AZDR06, serial number [id number]. 2. Right atrial lead: Cordis model [id number]. 3. Right ventricular lead: Cordis model 329-158, serial #[id number]. Efforts underway to obtain a pacemaker generator that would be compatible with his indwelling chronic leads.If device arrives today, will plan for procedure today. Continue sotalol. Keep n.p.o. for planned generator change today. Patient confirmed his CODE STATUS that he would like to be a full code. (2) History of tetralogy of Fallot: Plan: Surgical repair in 1962 with severe residual pulmonic regurgitation and right ventricular chamber enlargement noted on echocardiogram in 2023. Stable findings noted on echocardiogram today with abnormal septal motion consistent with right ventricular chamber volume overload, LVEF 45 to 50%. Severe pulmonic regurgitation. Mild mitral regurgitation.Despite echo findings, patient describes stable activity tolerance without perceived limitation. Chest x-ray with mediastinal prominence, likely related to his underlying congenital heart disease. Patient does not have any other acute chest symptoms. (3) Chronic indwelling Branch catheter: Plan: TURP on hold pending generator change, with recommendations as noted last week to have planned urology procedure performed at a tertiary center due to his complex cardiac history. Will likely need to delay the TURP given generator change for an interval of at least 3 months to minimize risk of seeding infection. I spent a total of 50 minutes on the date of service in preparation, delivery, and documentation of the care provided to this patient, excluding any time spent in the performance of separately billed services. Stan Low DO Admission and Anticipated Discharge Date Admission Date: December 16, 2024 Subjective Patient seen in cardiology follow-up. Feeling well today. Echocardiogram revealed stable findings.Telemetry reveals ventricular paced rhythm at 65 bpm. Review of Systems Review of Systems: All systems reviewed & are unremarkable except as noted in HPI & below Physical Exam Physical Exam: Vital Signs Temp 36.7 C 12/17/24 08:15 Pulse 64 12/17/24 08:15 Resp 18 12/17/24 08:15 BP 90/60 L 12/17/24 08:15 Pulse Ox 97 12/17/24 08:15 O2 Del Method Room Air 12/17/24 08:15 General: no acute distress and stated age Eyes: conjunctiva are pink and non-injected, sclera clear Neck: normal jugular venous pulse, no hepatojugular reflux Chest: normal shape and normal respiratory effort -Well-healed midline sternotomy incision -Right infraclavicular device pocket terese an dry and intact Lungs: clear to auscultation and percussion Cardiac Exam: - regular heart sounds,1/6 diastolic murmur Abdomen: abdomen soft, non-tender, no abnormal masses and no hepatosplenomegaly Musculoskeletal: no gait disturbance, no weakness Extremities: no edema and no cyanosis Neuro: grossly normal exam Psych: appropriate affect and insight. Results & Data Laboratory Results Cardiac Enzymes 12/16/24 Range/Units 17: AST 13 (13-39) U/L Coagulation 12/16/24 Range/Units 17:23 PT 11.2 (9.0-12.0) Seconds CBC 12/16/24 12/17/24 Range/Units 17:23 05:36 WBC 14.14 H 12.04 H (4.8-10.8) K/ul RBC 5.49 4.89 (4.70-6.10) M/uL Hgb 15.8 14.2 (14.0-18.0) g/dl Hct 46.3 41.6 L (42.0-52.0) % Plt Count 279 231 (130-400) K/uL Neut # (Auto) 9.84 H (1.40-6.50) K/uL Lymph # (Auto) 2.79 (1.20-3.40) K/uL [place] # (Auto) 1.38 H (0.11-0.59) K/uL Eos # (Auto) 0.00 (0.00-0.50) K/uL Baso # (Auto) 0.07 (0.00-0.20) K/uL Comprehensive Metabolic Panel 12/16/24 12/17/24 Range/Units 17:23 05:36 Sodium 137 136 (136-145) mmol/L Potassium 3.9 3.7 (3.5-5.1) mmol/L Chloride 96 L 99 (98-107) mmol/L Carbon Dioxide 29 29 (21-32) mmol/L BUN 42 H 35 H (6-23) mg/dl Creatinine 1.12 1.00 (0.6-1.4) mg/dl Glucose 138 H 124 H (70-99(Fasting)) mg/dl Calcium 10.1 9.0 (8.6-10.3) mg/dl AST 13 (13-39) U/L ALT 10 (7-52) U/L Alkaline Phosphatase 66 (34-104) U/L Total Protein 8.0 (6.0-8.3) gm/dl Albumin 4.4 (3.4-5.0) gm/dl PG Care Time/CCT Total # of Minutes Spent Total Time Spent with Patient: Total time spent is greater than 50% in coordination of care (as documented) at patient's floor/unit and/or counseling patient: Coding Level of Care Code 86445 SUB INP/OBS CARE 3/50MIN Diagnoses Pacemaker generator end of life Z45.010 History of tetralogy of Fallot Z87.74 Chronic indwelling Branch catheter Z97.8
--- NOTE | 2024-12-17 12:09 | Electrocardiogram Report ---
Test Reason : Blood Pressure : */* mmHG Vent. Rate : 65 BPM Atrial Rate : 75 BPM P-R Int : * ms QRS Dur : 190 ms QT Int : 502 ms P-R-T Axes : * 197 86 degrees QTcB Int : 522 ms Ventricular-paced rhythm Abnormal ECG No previous ECGs available Confirmed by Peter Swann [id number]) on 12/17/2024 12:09:34 PM Referred By: REFERRED SELF Confirmed By: Peter Swann
--- NOTE | 2024-12-17 12:22 | Pre Anesthesia Assessment ---
Date of Service December 17, 2024 Pre Sedation Assessment Vital Signs Temp Pulse Pulse Resp BP BP Pulse Ox 12/17/24 12:00 65 16 100/78 96 12/17/24 08:15 36.7 C 64 18 90/60 L 97 12/17/24 04:15 36.4 C L 65 17 99/66 L 94 12/16/24 23:57 36.6 C 65 16 105/66 96 12/16/24 21:58 65 12/16/24 21:08 65 12/16/24 20:54 36.6 C 63 18 137/87 96 12/16/24 20:30 65 17 106/56 L 93 12/16/24 20:03 65 21 125/76 94 12/16/24 19:45 65 22 108/62 94 12/16/24 19:30 65 20 95 12/16/24 19:00 12/16/24 19:00 65 13 133/74 94 12/16/24 19:00 65 18 94 12/16/24 19:00 133/74 12/16/24 19:00 133/74 12/16/24 18:45 134/79 12/16/24 18:45 134/79 12/16/24 18:42 65 20 94 12/16/24 18:39 65 19 96 12/16/24 18:31 114/64 12/16/24 18:29 66 12/16/24 18:27 65 18 94 12/16/24 18:20 65 23 114/70 95 12/16/24 18:15 114/70 12/16/24 18:15 114/70 12/16/24 18:15 114/70 12/16/24 18:15 65 22 94 12/16/24 17:30 65 18 97/65 L 94 12/16/24 17:00 36.6 C 65 18 115/69 95 Pulse Ox O2 Del Method O2 Del Method 12/17/24 12:00 Room Air 12/17/24 08:15 Room Air 12/17/24 04:15 Room Air 12/16/24 23:57 Room Air 12/16/24 21:58 12/16/24 21:08 12/16/24 20:54 Room Air 12/16/24 20:30 12/16/24 20:03 Room Air 12/16/24 19:45 Room Air 12/16/24 19:30 Room Air 12/16/24 19:00 93 Room Air 12/16/24 19:00 12/16/24 19:00 Room Air 12/16/24 19:00 12/16/24 19:00 12/16/24 18:45 12/16/24 18:45 12/16/24 18:42 Room Air 12/16/24 18:39 Room Air 12/16/24 18:31 12/16/24 18:29 12/16/24 18:27 Room Air 12/16/24 18:20 Room Air 12/16/24 18:15 12/16/24 18:15 12/16/24 18:15 12/16/24 18:15 12/16/24 17:30 Room Air 12/16/24 17:00 Cardiovascular RRR, no murmur, no edema Respiratory normal respiratory effort, lungs clear to auscultation Pre-Sedation Airway Assessment Smoking Status: Never smoker Hx Sleep Apnea: No Short, Thick Neck: No Thyromental Distance: < 3.5 Finger Breadths Oral Cavity: + WNL Mallampati Class: II ASA: ASA2 NPO Status Date of Last Intake of Fluids: 12/16/24 Time of Last Intake of Fluids: 20:00 Date of Last Intake of Solid Food: 12/16/24 Time of Last Intake of Solid Foods: 20:00 Procedure Planning Contraindications for Sedation: none Current Medications Reviewed: Yes Notes The planned sedation has been discussed with the patient. Informed Consent was obtained. I have identified the patient, determined the appropriateness of sedation and have assessed the patient immediately prior to the procedure. All medicine(s) and interventions are by my order.
--- NOTE | 2024-12-17 12:22 | History & Physical Bridge Note ---
Date of Service December 17, 2024 History & Physical Bridge Note I have examined the patient, reviewed the History & Physical and in the interval since the performance of the History & Physical I have noted the following changes of clinical significance: no changes noted; discussed the procedure and potential risks with the patient-he expressed an understanding and consents signed.
--- NOTE | 2024-12-17 12:40 | Operative Report ---
Post Operative Report DATE OF PROCEDURE: 12/17/2024 PREOPERATIVE DIAGNOSES: PPM at RAJINDER and CHB POSTOPERATIVE DIAGNOSIS: Same PROCEDURE: A dual-chamber rate responsive permanent pacemaker generator change SURGEON: Miryam Ascencio DO ASSISTANTS: None. ANESTHESIA: Monitored conscious sedation administered under my supervision by Yasmeen Burger. Start time [], end time [], a total of 1 mg of Versed and 25 mcg of fentanyl. INTRAVENOUS FLUIDS: 30 mL. CONTRAST: none ANTIBIOTICS:2 grams of ancef BLOOD LOSS: 5 mL. URINE OUTPUT: Not applicable. SPECIMENS: None. FINDINGS: See below. DRAINS: None. COMPLICATIONS: None. CONDITION: Stable. 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 His pacemaker was found to be EOL and he was recommended hospital observation and then to have the procedure of a generator change prior to discharge. CONSENT: Consent was obtained prior to the patient going into the electro physiology lab. The patient and family wer informed of the risks, benefits, and alternatives to the procedure. Risks include, but not limited to, sudden cardiac , cardiac arrhythmias, cerebrovascular accident, myocardial infarction, bleeding and infection. The patient and family understood these risks and agreed to the procedure as planned. Informed consent was obtained. DESCRIPTION OF PROCEDURE: The patient was brought into electrophysiology lab in a fasting state. He was connected to continuous cardiac monitoring. A timeout was performed to ensure the patient's identity and procedure correctly. He was prepped and draped in the left infraclavicular space in normal surgical standard fashion. Monitored conscious sedation was given throughout the procedure for the patient's comfort level. [place] precautions were maintained throughout the procedure. Prophylactic abx were given prior to incision. A 20 mL of 1% lidocaine and bupivacaine mixture were given over prior surgical incision. Then incision was made over the prior surgical incision. Then, using blunt dissection was performed down to the capsule; the capsule was broken open and the generator was removed. The capsule was disrupted inferior and caudally to allow for new blood flow. Then the leads were disconnected from the generator and testing was deferred given the leads are unipolar. Then the leads were attached to the new generator making sure the pins were in appropriate place and the set screws were tightened; while always keeping the generator within the pocket to some degree so the unipolar lead would capture and pace. Then the pocket was flushed with copious amounts of vancomycin and saline wash and inspected for hemostasis. Pulse generator was then placed in the pocket, making sure the leads were lying flat beneath the device. The incision was closed in a 3-layer fashion using 2-0 Vicryl interrupted suture, followed by 3-0 Vicryl interrupted suture, followed by 4-0 Monocryl running stitch. Dermabond was applied followed by silver dressing.. EQUIPMENT: 1. Pulse generator is a [employer] Rosanne XT DR GIOVANI Meneses [id number], serial number [id number]. 2. RA Lead; 4076-45cm; SN: [id number] implanted 08/02/2011 3. RV lead, [employer] 4076-52 cm, serial number [id number] implanted 08/02/2011 4. Explanged generator [employer] [id number]; SN: [id number] implanted 08/02/2011 ([employer]ITIONER on 08/31/2022) INTRAPROCEDURAL FINDINGS: Defer due to leads being unipolar leads FINAL MEASUREMENTS THROUGH THE DEVICE: 1.RA Lead P waves 2.5mV; 323 ohms, 1V@0.4ms 2. RV lead, R waves 13.4 millivolts, impedance 589 ohms, threshold 2.0 volts at 0.4 milliseconds. FINAL PARAMETERS: MVP-R 60/120, Right atrial lead amplitude 2V, PW 0.4ms; sensitivity 0.3mV; right ventricular lead amplitude 4.0 volts, pulse width 1.0 milliseconds, sensitivity 1.2 millivolts. IMPRESSION: Successful dual chamber rate responsive permanent pacemaker generator change secondary to tachybrady syndrome and ppm at RAJINDER. PLAN: Monitor the patient post-procedure. He is to keep the dressing on and dry until his wound check next week.
[2024-12-17] MEDS: ceFAZolin 330 MG/ML 1 GM VIAL ONE (13:26)
[2024-12-17] MEDS: PHENYLEPHRINE 100MCG/ML 5ML SYR ONE (14:38)
[2024-12-17] MEDS: MIDAZOLAM HCL 5 MG/ML 1 ML VIAL ONE ×2 (14:38→15:08)
--- NOTE | 2024-12-17 15:04 | Post Anesthesia Assessment ---
Date of Service December 17, 2024 Post Sedation Assessment Vital Signs Temp Pulse Pulse Resp BP BP Pulse Ox 12/17/24 12:00 65 16 100/78 96 12/17/24 08:15 36.7 C 64 18 90/60 L 97 12/17/24 04:15 36.4 C L 65 17 99/66 L 94 12/16/24 23:57 36.6 C 65 16 105/66 96 12/16/24 21:58 65 12/16/24 21:08 65 12/16/24 20:54 36.6 C 63 18 137/87 96 12/16/24 20:30 65 17 106/56 L 93 12/16/24 20:03 65 21 125/76 94 12/16/24 19:45 65 22 108/62 94 12/16/24 19:30 65 20 95 12/16/24 19:00 12/16/24 19:00 65 13 133/74 94 12/16/24 19:00 65 18 94 12/16/24 19:00 133/74 12/16/24 19:00 133/74 12/16/24 18:45 134/79 12/16/24 18:45 134/79 12/16/24 18:42 65 20 94 12/16/24 18:39 65 19 96 12/16/24 18:31 114/64 12/16/24 18:29 66 12/16/24 18:27 65 18 94 12/16/24 18:20 65 23 114/70 95 12/16/24 18:15 114/70 12/16/24 18:15 114/70 12/16/24 18:15 114/70 12/16/24 18:15 65 22 94 12/16/24 17:30 65 18 97/65 L 94 12/16/24 17:00 36.6 C 65 18 115/69 95 Pulse Ox O2 Del Method O2 Del Method 12/17/24 12:00 Room Air 12/17/24 08:15 Room Air 12/17/24 04:15 Room Air 12/16/24 23:57 Room Air 12/16/24 21:58 12/16/24 21:08 12/16/24 20:54 Room Air 12/16/24 20:30 12/16/24 20:03 Room Air 12/16/24 19:45 Room Air 12/16/24 19:30 Room Air 12/16/24 19:00 93 Room Air 12/16/24 19:00 12/16/24 19:00 Room Air 12/16/24 19:00 12/16/24 19:00 12/16/24 18:45 12/16/24 18:45 12/16/24 18:42 Room Air 12/16/24 18:39 Room Air 12/16/24 18:31 12/16/24 18:29 12/16/24 18:27 Room Air 12/16/24 18:20 Room Air 12/16/24 18:15 12/16/24 18:15 12/16/24 18:15 12/16/24 18:15 12/16/24 17:30 Room Air 12/16/24 17:00 Recovery Score Activity: Moves 4 extremities Respiration: Deep Breath/Cough Circulation: +/-20% PreAnes Value Consciousness: Fully Awake Oxygen Saturation: > 92% On Room Air Discharge Sedation Level of Care: Fast Track Phase II Post Sedation Plan On clinical assessment, the patient appears to have tolerated the sedation without complications. Patient is recovering as anticipated. Patient will continue to be monitored by nursing and may be discharged when sedation discharge criteria are met per below protocol. Upon Completions of procedure up to 15 minutes continue every 5 minute vital signs and the P.A.R. score; then discharge to a Phase I or Fast Track to Phase II per the following guidelines: * Discharge Patient to appropriate Phase II area if PAR is 8 or greater or return to pre- procedure baseline. The post - procedure orders will be as directed. * If PAR score is less than 8 or not return to pre-procedure baseline then patient will follow Phase I monitoring till PAR is reached for Phase II. The Phase I may be done in procedure room or may call to secure a Phase I area. * If naloxone or flumazenil are used for reversal, hold in Phase I for continued monitoring from when last reversal dose was given for a minimum of 60 minutes or longer pending the nurse and/or physician discretion of patient condition before discharge to Phase II. Please call the Sedation Physician to re-evaluate and complete post-note for discharge to Phase II area. Do NOT discharge from procedure sedation or Phase 1 until post- sedation evaluation note is complete by procedure /sedation MD Sedation Discharge Instructions to be given to the patient at discharge to home.
[2024-12-17] MEDS: BUPIVACAINE 0.25% PF 30 ML VIAL ONE (15:07)
[2024-12-17] MEDS: WATER, STERILE FOR INJ 10 ML VIAL ONE (15:08)
[2024-12-17] MEDS: VANCOMYCIN HCL 1000MG/20ML VIAL ONE (15:08)
[2024-12-17] MEDS: LIDOCAINE 1% LOCAL 20 ML VIAL ONE (15:08)
[2024-12-17] MEDS ORDERED: Nursing to Pharmacy Communication SCH (17:00)
[2024-12-17] MEDS: INSULIN ASPART PER UNIT CHARGE SC SCH (17:43)
--- NOTE | 2024-12-17 17:50 | Discharge Summary ---
Date of Service December 17, 2024 Admission HPI Per Admitting Provider 69-year-old male with PMH of congenital heart disease, tetralogy of Fallot [underwent surgical repair at the age of 7 in 1963 at [facility] in [place]], had pacemaker since age 26 and is currently on his third pacemaker [replaced 2016] [primarily pacing right ventricle due to complete heart block], severe pulmonic regurgitation, right heart enlargement, atrial flutter on sotalol, benign prostatic hypertrophy, urinary retention status Branch catheter [changed 4 weekly, can't tell when last changed but states within 4 weeks] was sent to the ED by his outpatient cardiology office due to patient's current pacemaker device was RAJINDER from 07/14/2024. Patient denies fever/chills/cough/chest pain/palpitation/nausea/vomiting/diarrhea/pain or burning with passing urine/acute changes in his appetite/belly pain. Patient has chronic Branch catheter, light yellow urine collection noted in bag. Patient denies smoking/alcohol/recreational drugs. Medications reviewed with the patient at bedside. Admission Exam Per Admitting Provider GENERAL: Alert and oriented x3. NAD, on RA. HEENT: No pallor, no icterus. Pupils equal, round and reactive to light. Oral mucosa moist. NECK: No JVD, no neck masses. HEART: S1 and S2 heard. Regular rate and rhythm. + murmur, no gallop. Right pectoral device pocket healthy without erythema /swelling/tenderness/drainage. RESPIRATORY SYSTEM: Normal AP diameter. No accessory muscle use. No wheezing, no crackles. ABDOMEN: Soft, bowel sounds present, nontender, no distention. CENTRAL NERVOUS SYSTEM: No facial droop. Speech is clear. Obeys simple commands. Moves extremities. EXTREMITIES: No edema, no erythema seen. Principal Diagnosis Pacemaker generator end of life s/p pacer generator exchange Discharge Exam GENERAL: Alert and oriented x3. NAD, on RA. HEENT: NC/AT. Oral mucosa moist. NECK: supple HEART: S1 and S2 heard. Regular rate and rhythm. + murmur, no gallop. Dressings over Right pectoral device pocket RESPIRATORY: No accessory muscle use. No wheezing, no crackles. ABDOMEN: Soft, bowel sounds present, nontender, no distention. NEURO: awake, alert, answers appropriately, No facial droop. Speech is clear. Moves extremities. EXTREMITIES: No edema, no erythema seen. Discharge Data Allergies Allergy/AdvReac Type Severity Reaction Status Date / Time aspirin Allergy Unknown Verified 12/16/24 18:27 Consultations 12/16/24 18:56 ED Decision to Admit Stat 12/16/24 20:13 Consult Cardiology Routine Procedures Performed Operation Date: 12/17/24 12:00 Actual Procedures p Pacer Gen Change Dual - Miryam Ascencio, DO p Temporary Transcutaneous Pacing - Josue Kraus MD Ordered Studies 12/17/24 08:45 EP Lab Images for PACS ONCE Hospital Course (1) Pacemaker generator end of life: Plan Pacemaker RAJINDER 07/14/2024 Pacemaker battery end of life s/p pacer generator exchange Patient currently on his third pacemaker, implanted 09/15/2015, D[employer]BLER OPERATOR was on 07/14/2024, cardiology office was notified by [employer] team and hence they recommended patient to reach out to the ED. Patient does not have any cardiac complaints. Case was discussed with cardiology on admission, patient was admitted to PCU - currently n.p.o. in anticipation of pacer gen change by Dr. Ascencio later today - continue with sotalol - cont. to closely monitor 12/17/2024 Pt seen in the morning, feeling well. Pt went for pacer generator exchange later today w/ Dr. Ascencio. Discussed w/ cardiology - pt ok to be discharged after 5pm. Will need to follow up w/ cardiology for wound check. Pt is feeling well after procedure and asks about discharge. Pt will need to follow up with primary care doctor and cardiology. Keep dressings on clean and dry until the wound check next week. BPH, urinary retention: Branch catheter, continue. Plan for TURP in tertiary center in the future Other chronic medical conditions: T2DM, HLD, gout, GERD, HTN, Tetralogy of Fallot, paroxysmal atrial tachycardia, complete AV block, congenital heart disease: Continue with/resume home meds as and when able. Total Time Total Time Spent Total Time Spent (In Minutes): 40 Discharge Plan Discharge Items Patient Disposition: Home - Self-Care Reason For Visit: PACEMAKER END OF LIFE Discharge Diagnosis: Pacemaker generator end of life s/p pacer generator exchange Condition on Discharge: Fair Activity: Per Instructions section Non-emergency contact: Primary Care Provider and Leather Flesher Call non-emergency contact if: you have any medication questions and your sympto ms worsen Follow-up/Referrals: Blu Lainez MD [Primary Care Provider] - Diet: Heart Healthy Addtl Attending Provider Instructions: Follow up with your primary care doctor and inspector balance wheel motion. Keep dressings on clean and dry until your wound check appointment week. Continue your current medications. ACTIVITY RECOMMENDATIONS: It is common to feel weak and fatigue for a few days. * Do not drive or operate any motorized equipment for the next three days. * Limit stair usage (2 or 3 trips a day only) for the next three days. * Do not lift anything heavier than 10 pounds for the next three days. * Do not engage in vigorous exercise or any sports for the next five days. * You may shower the day after your procedure, but do not immerse the area for three days. Cleanse the site gently with soap and water. SPECIAL CARE INSTRUCTIONS: * You may replace the pressure dressing or band-aid the morning after the procedure. * After your procedure, it is normal to have a small bruise or small lump at the site. Examine your site daily for any change in the bruise or lump, redness, swelling, drainage or numbness. Notify your doctor if any change. BLEEDING: * If there is a small amount of bleeding at the site, lie down and apply firm pressure with a clean cloth for ten minutes. When the bleeding stops, lie quietly keeping the procedure limb straight for six hours. Notify your doctor as soon as possible. * If the bleeding does not stop after ten minutes or if there is a large amount of bleeding or spurting, call 911 immediately. Continue to lie down and hold firm pressure until help arrives. SKIN IRRITATION: * You may experience some redness and/or swelling in the area where radiation was administered. If any skin irritation occurs, please contact your family physician. FOLLOW UP VISIT: Keep any scheduled doctor appointments. Pending Studies at Discharge: No Stand-Alone Forms: My [facility], Smoking Cessation Medications and DC Order Prescriptions: Continued furosemide 40 mg tablet 40 mg PO BID Rx Instructions: Morning/Evening sotalol 80 mg tablet 80 mg PO BID allopurinol 100 mg tablet 50 mg PO QAM spironolactone 25 mg tablet 25 mg PO QAM famotidine 20 mg tablet 20 mg PO QAM magnesium oxide 400 mg (241.3 mg magnesium) tablet 400 mg PO QAM tamsulosin 0.4 mg capsule 0.4 mg PO QAM metformin 1,000 mg tablet 1,000 mg PO BIDWMEAL vitamin B complex [Vitamin B-100] Tablet 1 tab PO QAM polyethylene glycol 3350 [ClearLax] 17 gram/dose powder 17 g PO QAM finasteride 5 mg tablet 5 mg PO QAM pravastatin 40 mg Tablet 0 mg PO HS Patient Comments: Original Directions: 40mg by mouth at bedtime. Pt unsure if he still takes this medication or not. 12/16/24 Discharge Orders: Discharge Order (Routine); Ordered 12/17/24 Ordered By: González Griffiths Admission Data Admit Date/Time: 12/16/24 18:37 Attending Provider: González Griffiths Admit Provider: Andrey Cline Primary Care Provider: Blu Lainez Other Providers: Andrey Cline; Amilcar Low
== END 2024-12-17 18:50 | disposition home or self-care (01) | DRG 243 ==
LOC: ED 16:59 → EDINP 18:37 → SUATTDRO 18:37 → 4W 20:13
PROC: CLB.TTP (2024-12-17 12:00)